=== PATIENT | female | born 1985 | race Caucasian/White ===

== ENCOUNTER 2020-10-08 09:20 | Emergency (ER) | payer OTHER, SELFPAY ==
[2020-10-08] VITALS (13 sets, daily range): BP systolic 118–125; BP diastolic 75–81; PULSE 67–94; RESP 11–20; TEMP 37.1; O2SAT 99–100
--- NOTE | 2020-10-08 09:15 | RT.EKG_ITS ---
APPROVED REPORT Exam: Resting ECG Reason for Exam: Chest Pain Patient Location: E HR:76 bpm ECG Measurements Heart Rate 76 AXIS DE 149 P 71 QRSd 86 QRS 49 QT 367 T 45 QTc 413 Conclusion Sinus rhythm...normal P axis, V-rate 60- 99. No STEMI. I have reviewed and interpreted ECG and agree with software generated interpretation.
--- NOTE | 2020-10-08 09:25 | W.ED.GENAD ---
Discharge Plan Disposition Patient Disposition: HOME Condition: Stable Discharge Details Clinical Impression: Non-cardiac chest pain Primary Care Provider: Orlin Lan ED Provider: Dunia Quigley Home Meds and New Rx's Prescriptions: No Action rizatriptan [Maxalt-PLAY READER] 10 mg tablet,disintegrating See Rx Instructions .ROUTE .COMPLEX RF: 0 metoclopramide HCl 10 mg tablet 10 mg PO TID PRNRF: 0 Discharge Instructions Instructions: Chest Pain (ED) Additional Instructions: At this time we have done a cardiac rule out work-up for your chest pain here. At this time it does not seem to be cardiac related. You have had a normal EKG and blood work. Follow up with primary care provider in 3-5 days. Return to ED sooner if any worsening or concerns. Increase oral fluids. Please take Tylenol or Ibuprofen with food every 4-6 hours as needed for pain and swelling. Please return to the ED for any change in the type of pain, trouble breathing, shortness of breath coughing up green or yellow sputum, fever or any other worsening concerns. Stand Alone Forms: Work Release Referrals: Orlin Lan MD [Primary Care Provider] - Discharge Data Discharge Date/Time-TO BE ENTERED AT DEPARTURE: 10/08/20 11:22 Medical Decision Making 34-year-old female presents to the ER with chief complaint of left sided chest pain which radiates around to the front of her right chest which began last night while in class. Patient is a teacher at an elementary school. She states that the pain has been constant, waxes and wanes. On arrival she is complaining of a 4 out of 10 pain. Pain does get worse with movement and deep breathing. She does have tenderness with palpation to her anterior chest wall. She does have not have any significant past cardiac history does have positive family past medical history. She states that her grandfather had an ME at a young age. Last normal menstrual period was approximately 1 month ago she is not currently taking any control pills. She is a non-smoker denies not endorse any alcohol use. She does have a past medical history of migraines and takes Imitrex and metoclopramide for. Does not currently have a headache. Cardiac work-up ordered including serial troponins, EKG. Chest x-ray D-dimer. 0927: EKG was reviewed by [myself and] ER attending, no ectopy, no EKG available for review. EXAM: XR CHEST 2V PA LATERAL CLINICAL HISTORY: Chest pain, R/O PNA, Pnthx, cardiopulmonary abnorm TECHNIQUE: 2D digital imaging was performed. COMPARISON: No exams were available for comparison FINDINGS: The heart is not enlarged. The lungs are clear and well expanded. No pleural effusion seen. Mediastinal contours appear intact. IMPRESSION: Normal chest. Lab work is within normal limits, no elevation in troponin, chest x-ray shows no cardiopulmonary abnormality. Patient D-dimer 193 CMP within normal limits. Patient reevaluation she does still have some mild chest discomfort with moving or deep breathing none at rest. Will order some ibuprofen for her prior to discharge. At this time I do suspect more musculoskeletal or pleuritic type pain noncardiac in origin. I did discuss follow-up with her primary care provider for further work-up and discussed return instructions to return to the ER for any worsening chest pain not relieved by medications, shortness of breath, cough fever, fast heart rate or any concerns. Patient does verbalize understanding. At this time patient is low risk, heart score is very low risk at this time. HPI General Mode of arrival: ambulatory. Date/Time Provider Initiated Documentation: 10/08/20 09:25. Limitations to Documentation: no limitations. Information obtained by: patient. HPI Narrative: 34-year-old female presents to the ER with chief complaint of left sided chest pain which radiates around to the front of her right chest which began last night while in class. Patient is a teacher at an elementary school. She states that the pain has been constant, waxes and wanes. On arrival she is complaining of a 4 out of 10 pain. Pain does get worse with movement and deep breathing. She does have tenderness with palpation to her anterior chest wall. She does have not have any significant past cardiac history does have positive family past medical history. She states that her grandfather had an ME at a young age. Last normal menstrual period was approximately 1 month ago she is not currently taking any control pills. She is a non-smoker denies not endorse any alcohol use. She does have a past medical history of migraines and takes Imitrex and metoclopramide for. Does not currently have a headache. Related Data Home Medications Medication Instructions Recorded Confirmed metoclopramide HCl 10 mg PO TID PRN 10/08/20 10/08/20 rizatriptan [Maxalt-PLAY READER] See Rx Instructions .ROUTE .COMPLEX 10/08/20 10/08/20 Allergies Allergy/AdvReac Type Severity Reaction Status Date / Time chocolate flavor Allergy Severe MIGRANE, Unverified 10/08/20 09:31 THROAT CLOSES Review of Systems Narrative: Constitutional: Negative for weight loss, alert and oriented, well groomed, normal body habitus, appears comfortable. HEENT: Denies trauma, headaches, blurry vision, nasal discharge, sore throat, trouble swallowing. Chest: Denies palpitations, irregular rhythm, reports left-sided chest pain which radiates across to her right side of her chest which has been constant with waxing and waning worse with deep breathing and palpation and movement since last night. Respiratory: Denies Shortness of breath, cough, hemoptysis. GI: Denies abdominal pain, nausea, vomiting, diarrhea, constipation. : Denies dysuria, hematuria, flank pain, rectal bleeding. Neuro: Denies dizziness, blurry vision, weakness, syncope, headache or facial numbness. Hematologic: Denies easy bruising, intolerance to heat or cold, hair loss. [facility] Surgical History section x2: 08/31/10; 04/22/13 wisdom tooth extraction (09/09/12) Social History Smoking/Tobacco Use Status: Never Smoking risk assessment performed?: Yes Alcohol Intake: current Alcohol Intake frequency: holidays/special occasions only Drug use: Never Substance use type: does not use Do you feel safe at home: Yes Do you feel safe in your relationship?: Yes Exam Narrative Exam Narrative: Constitutional: Alert and oriented x3. Appears stated age. Normal body habitus. Head: Normocephalic, no trauma. Eyes: Pupils PERRLA, Red reflex noted, EOM's intact. Eyelids symmetrical without lesions, discharge, or swelling. ENT: Bilateral TM's WNL, External ear normal to inspection, no mastoid TTP, swelling, or erythema, Nasal turbinates WNL, no nasal discharge. Normal dentition, Posterior pharynx WNL, no exudate. Chest: RRR, Normal S1, S2, distal pulses intact. Resp: Lungs clear to auscultation bilaterally, no wheezes, rales, or rhonchi. Musculoskeletal: Normal gait, 5/5 strength to all four extremities. Skin: No suspicious rashes or lesions. Capillary refill less than 2 sec. Neurologic: Cranial nerves II-XII intact. Alert and oriented x 3. DTR's intact. Hematologic/Lymphatic: No ecchymosis, no lymphadenopathy.
[2020-10-08 09:51] LABS: Abs Immature Grans 0.01 10^3/uL (0.0-0.06); Absolute Basophil Count 0.05 10^3/uL (0.0-0.2); Absolute Eosinophil Count 0.03 10^3/uL (0.0-0.7); Absolute Lymphocyte Count 1.91 10^3/uL (1.2-3.4); Absolute Monocyte Count 0.38 10^3/uL (0.1-0.8); Basophils % 0.7; Eosinophils % 0.4; HCT 40.8 % (36.0-46.0); HGB 14.1 g/dL (11.2-15.7); Immature Grans % 0.1; Lymphocytes % 28.2; MCHC 34.6 % (32.0-36.0); MCV 92.7 fL (80-95); MPV 10.9 fL (8.0-11.0); Monocytes % 5.6; Nucleated RBC 0 %; Platelet Count 234 10^3/uL (130-400); RDW 12.2 % (11.7-14.6); RDW-SD 41.9 fL; WBC 6.78 10^3/uL (4.4-10.8)
[2020-10-08] MEDS: Aspirin 81 MG CHEW 324 MG CH (10:05)
[2020-10-08 10:07] LABS: ALT 17 U/L (14-59); AST 14 U/L (15-37); Albumin 4.5 g/dL (3.4-5.0); Alkaline Phosphatase 59 U/L (46-116); Anion Gap 8.8 mmol/L (3-11); BUN 11 mg/dL (7-18); Bilirubin, Total 0.6 mg/dL (0.2-1.0); CO2 26.2 mmol/L (21.0-32.0); CREATININE 0.8 mg/dL (0.55-1.02); Calcium 9.4 mg/dL (8.5-10.1); Chloride 104 mmol/L (98-107); Glucose 106 mg/dL (74-106); Potassium 3.6 mmol/L (3.5-5.1); Sodium 139 mmol/L (136-145); Total Protein 7.7 g/dL (6.4-8.2); Troponin I < 0.05 ng/mL (<0.06)
[2020-10-08 10:22] LABS: D-Dimer 193 ng/mlFEU (<500)
--- NOTE | 2020-10-08 10:35 | DI.RAD_ITS ---
Exam(s) XR CHEST 2V PA LATERAL EXAM: XR CHEST 2V PA LATERAL CLINICAL HISTORY: Chest pain, R/O PNA, Pnthx, cardiopulmonary abnorm TECHNIQUE: 2D digital imaging was performed. COMPARISON: No exams were available for comparison FINDINGS: The heart is not enlarged. The lungs are clear and well expanded. No pleural effusion seen. Mediastin al contours appear intact. IMPRESSION: Normal chest. RADIATION DOSE DELIVERED: Total DLP
[2020-10-08] MEDS: Ibuprofen 400 MG TAB PO (11:18)
== END 2020-10-08 11:22 | disposition home or self-care (01) ==
PROVIDERS: Emergency Provider Registered Nurse Emergency; PCP Internal Medicine
DX: R07.89 Other chest pain (principal)
CPT/HCPCS: 36415; 80053; 81025; 93005; 99284; 71046; 83735; 84484; 85025; 85379; 93010; 99283

== ENCOUNTER 2023-07-24 21:09 | Outpatient (REF) | payer OTHER, SELFPAY | END 2023-07-24 21:10 | disposition home or self-care (01) | LOC: LBN 21:09 | PROVIDERS: Visit Provider Nurse Practitioner Family | DX: N30.01 Acute cystitis with hematuria (principal) | CPT/HCPCS: 87077; 87086; 87186 ==

== ENCOUNTER 2023-10-04 15:39 | Emergency (ER) | payer OTHER, SELFPAY ==
[2023-10-04 15:41] VITALS: PULSE 109; RESP 18; TEMP 37.2; O2SAT 99
[2023-10-04 15:44] VITALS: BP 131/88
--- NOTE | 2023-10-04 18:09 | ED.GENADUL_ITS ---
Discharge Plan Disposition Patient Disposition: Home Condition: Stable Discharge Details Clinical Impression: Strain of left tibialis anterior muscle, Neuropathy of left peroneal nerve Primary Care Provider: Unknown,Unknown ED Provider: Cristian Schroeder Home Meds and New Rx's Prescriptions: No Action rizatriptan [Maxalt-COORDINATOR SKILL TRAINING PROGRAM] 10 mg tablet,disintegrating See Rx Instructions .ROUTE .COMPLEX Patient Comments: take one tablet at onset of migraine symptoms. You can repeat in 1-2 hours if needed. No more than 2 tablets in 24 hours. Rx Instructions: take one tablet at onset of migraine symptoms. You can repeat in 1-2 hours if needed. No more than 2 tablets in 24 hours. metoclopramide HCl 10 mg tablet 10 mg PO TID PRN Patient Comments: TAKE 1 TABLET BY MOUTH THREE TIMES A DAY IF NEEDED FOR NAUSEA WITH HEADACHE Discharge Instructions Instructions: Cyclobenzaprine (By mouth), Muscle Strain (ED), Peripheral Neuropathy (ED) Additional Instructions: You were seen in the emergency department for your likely muscle strain and neuropathy, you could have slept on the area of the peroneal nerve that we discussed wrong and cause a little irritation along the nerve. Please alternate heat and ice to the area, take Tylenol, take 2 Aleve every 12 hours. Perform gentle massage, use the provided cyclobenzaprine for muscle relaxation. If this is not improving over the next 1 to 2 weeks please seek a referral to orthopedics, you have no sign of complete neurovascular compromise or significant infection on exam. And without prior trauma I do not suspect we need an x-ray at this time and less you are experiencing failure to resolve. Referrals: [facility] [Provider Group] Discharge Data Discharge Date/Time-TO BE ENTERED AT DEPARTURE: 10/04/23 18:35 HPI General Date/Time Provider Initiated Documentation: 10/04/23 15:45 . HPI Narrative: 37 year-old female presents to ED today by POV/ambulating with a chief complaint of L ankle pain with onset last week- cannot recall any trauma to the area. Quality described as pain in anterior left lower leg, with radiation to tingling feeling to the foot, feels cold and asleep somtimes. Severity is described as moderate. Palliating factors include has been using ice, OTC analgesics without relief, has OTC brace. Provoking factors include nothing specific. Patient not anticoagulated. Related Data Home Medications Medication Instructions Recorded Confirmed metoclopramide HCl 10 mg tablet 10 mg PO TID PRN 10/08/20 10/08/20 rizatriptan 10 mg disintegrating See Rx Instructions .Route .COMPLEX 10/08/20 10/08/20 tablet (Maxalt-COORDINATOR SKILL TRAINING PROGRAM) Allergies Allergy/AdvReac Type Severity Reaction Status Date / Time chocolate flavor Allergy Severe MIGRANE, Unverified 10/08/20 09:31 THROAT CLOSES General Stated Complaint: Orthopedic DARWIN: 4 Review of Systems All systems reviewed & are unremarkable except as noted in HPI and below Exam Narrative Exam Narrative: GENERAL APPEARANCE: Well-nourished, non-toxic, awake and alert, atraumatic, no acute distress. SKIN: Warm, pink, dry, intact, without rashes/lesions/ulcerations. HEAD: Normocephalic, atraumatic, normal hair distribution for gender/age. EYES: Normal conjunctiva, no exudates on lids/lashes. ENT: Nares patent, no circumoral cyanosis, no facial swelling NECK: Supple, trachea midline, painless cervical ROM. LUNGS/CHEST: Non-labored respirations, normal A/P diameter, symmetrical expansion, no chest wall deformity HEART (CV/PV): Regular rate, L dorsalis pedis 2+, no peripheral edema, no JVD. ABDOMEN: Soft, non-distended, no guarding. MSK: Normal ROM, no swelling/deformity to bilateral UEs or LEs, moving all extremities without weakness, no cyanosis, spine midline without tenderness, normal curvature. L LE: Tenderness is in the exact distribution of the anterior tibialis muscle, patient has limited to range of motion and strength of the left foot and ankle due to pain, brisk capillary refill and sensation is intact, also has tenderness around the fibular head, I do suspect the patient has an element of muscle strain as well as peroneal nerve neuropathy, no lesions, no erythema, no joint swelling, no warmth to touch, no pain with passive ROM. NEURO: Mental Status AAOx4 - alert to person, place, time, events No facial droop, no forehead involvement. Motor: No focal weakness - strength 5/5 in bilateral UEs and LEs, proximal and distal, symmetric. Sensory: sensation intact to light touch globally. Gait mildly antalgic. PSYCH: euthymic, cooperative, pleasant, appropriate speech Course Vital Signs Vital signs: Vital Signs Temperature 37.2 C 10/04/23 15:41 Pulse 109 H 10/04/23 15:41 Respiratory Rate 18 10/04/23 15:41 Pulse Oximetry 99 10/04/23 15:41 Temperature 37.2 C 10/04/23 15:41 Temperature Source Skin 10/04/23 15:41 Pulse 109 H 10/04/23 15:41 Respiratory Rate 18 10/04/23 15:41 Respiratory Effort Normal 10/04/23 15:44 Blood Pressure 131/88 10/04/23 15:44 Blood Pressure Position Sitting 10/04/23 15:41 Pulse Oximetry 99 10/04/23 15:41 Oxygen Delivery Method Room Air 10/04/23 15:41 Oxygen Flow Rate 0 10/04/23 15:41 Medical Decision Making This dictation utilizes [id number] dictation software and may contain unedited grammatical errors. 37 y/o F presents to ED today with a chief complaint of L ankle pain, ongoing for one week- some tingling, no trauma, denies fever/redness/lesions. Patient has been treating adequately with OTC regimens. Patients' medical history: Noncontributory. Family and social history: Noncontributory. Pertinent exam findings / vital signs include L LE: Tenderness is in the exact distribution of the anterior tibialis muscle, patient has limited to range of motion and strength of the left foot and ankle due to pain, brisk capillary refill and sensation is intact, also has tenderness around the fibular head, I do suspect the patient has an element of muscle strain as well as peroneal nerve neuropathy, no lesions, no erythema, no joint swelling, no warmth to touch, no pain with passive ROM.. Differential / pathologies of concern include muscle strain, peroneal neuropathy, unlikely septic arthritis, unlikely neurovascular compromise. Diagnostic studies of: -none, there was no bony tenderness in the ankle- clear distribution along anterior tib and peroneal - suspect they may have slept on their peroneal nerve one night. Interventions of: -Provided cyclobenzaprine to go, recommend gentle heat & massage, ortho f/u. ED Course/Assessment/Plan: 37-year-old female seen with likely muscle strain of the left lower extremity, there is no bony tenderness or pathologies to suspect infectious etiology of any joint, I do suspect he may have slept wrong on their peroneal nerve. Recommend continue at-home treatment, follow-up ortho. Findings not consistent with septic arthritis, gout, fracture, NV compromise. Disposition of Strain of left tibialis anterior muscle, neuropathy of left peroneal nerve. Patient verbalized understanding of the plan and return to ED criteria and engaged in shared decision making. Medical Records Medical records reviewed: Yes I reviewed the patient's medical records. Quality:[facility] Health Related Social Needs: No Data to Display PFSH All Active Problems (Updated 10/04/23 @ 18:19 by MARIA E Gonzales) Neuropathy of left peroneal nerve (Acute) Strain of left tibialis anterior muscle (Acute) Non-cardiac chest pain (Acute) Migraine (Chronic) Surgical History section x2: 08/31/10; 04/22/13 wisdom tooth extraction (09/09/12) Social History Smoking/Tobacco Use Status: Never Smoking risk assessment performed?: Yes Alcohol Intake: current Alcohol Intake frequency: holidays/special occasions only Drug use: Never Substance use type: does not use Do you feel safe at home: Yes Do you feel safe in your relationship?: Yes
[2023-10-04] MEDS: Cyclobenzaprine 10 MG TAB, 3 TABS/BTL PO (18:34)
== END 2023-10-04 18:35 | disposition home or self-care (01) ==
PROVIDERS: Emergency Provider Physician Assistant
DX: S86.212A Strain of muscle(s) and tendon(s) of anterior muscle group at lower leg level, left leg, initial encounter (principal); S84.12XA Injury of peroneal nerve at lower leg level, left leg, initial encounter; X58.XXXA Exposure to other specified factors, initial encounter
CPT/HCPCS: 99283

== ENCOUNTER 2024-09-05 10:42 | Outpatient (CLI) | payer OTHER, SELFPAY ==
[2024-09-05 14:18] LABS: Anion Gap 9.7 mmol/L (3-11); BUN 12 mg/dL (7-18); CO2 27.3 mmol/L (21.0-32.0); CREATININE 0.8 mg/dL (0.55-1.02); Calcium 8.9 mg/dL (8.5-10.1); Chloride 107 mmol/L (98-107); Estimated GFR 97.87 (mL/min/1.73m2); Glucose 91 mg/dL (74-106); Potassium 3.3 mmol/L (3.5-5.1); Sodium 144 mmol/L (136-145); TSH (W/Ref FT4) 1.07 uIU/mL (0.36-3.74)
[2024-09-08 08:34] LABS: HIV-1/2 Ag & Ab Screen Negative (Negative)
[2024-09-08 08:51] LABS: Hepatitis C Ab w Rflx HCV PCR Negative (Negative)
[2024-09-08 09:59] LABS: HBs Antibody, Quant 5.3 mIU/mL (See Note); Hep B Surface Ab Negative (See Note); Hepatitis B Core Antibody Negative (Negative); Hepatitis B Surface Antigen Negative (Negative)
[2024-09-08 10:05] LABS: HDL Cholesterol 68 mg/dL (>or=50); LDL CHOLESTEROL 68 mg/dL (<100)
== END 2024-09-05 10:43 | disposition home or self-care (01) ==
LOC: LBO 10:43
PROVIDERS: PCP Nurse Practitioner Family; Visit Provider Nurse Practitioner Family
DX: Z11.4 Encounter for screening for human immunodeficiency virus [HIV] (principal); Z00.00 Encounter for general adult medical examination without abnormal findings; Z11.59 Encounter for screening for other viral diseases
CPT/HCPCS: 36415; 80048; 83721; 86704; 86706; 86803; 87340; 87389; 83036; 83718; 84443

== ENCOUNTER 2024-12-30 01:27 | Outpatient (CLI) | payer OTHER, SELFPAY ==
--- NOTE | 2024-12-30 06:30 | DI.RAD_ITS ---
Exam(s) XR FINGER RT INDEX EXAM: XR FINGER RT INDEX CLINICAL HISTORY: on going pain,pain rt finger,M79.644. TECHNIQUE: 2D digital imaging was performed. COMPARISON: No exams were available for comparison FINDINGS: 3 views No evidence of fracture or dislocation nor abnormal soft tissue densities. Bone density is normal. No osseous lesions nor erosions evident. IMPRESSION: No significant osseous findings in the 2nd-index finger. DATA REPOSITORY: RADIATION DOSE DELIVERED:
== END 2024-12-30 01:47 ==
LOC: DI 01:28
PROVIDERS: PCP Nurse Practitioner Family; Visit Provider Nurse Practitioner Family
DX: M79.644 Pain in right finger(s) (principal)
CPT/HCPCS: 73140

== ENCOUNTER 2025-02-27 15:14 | Outpatient (REF) | payer OTHER, SELFPAY ==
--- NOTE | 2025-02-27 13:45 | PAPFT_PTH ---
PATIENT: Niki Carvalho LOC: [facility] U#:[id number] AGE/SX: 39/F ROOM: RE02/27/[address]: MASSIEL Pedro : 1985 BED: DIS: 02/27/2025 SPEC #: [id number] RECD: 02/27/25 17:31 STATUS: NISSA RESid #: [id number] MARGARITA: 02/27/25 13:[address]: Homa Ferrera [facility] Cytology RECD BY: Carolina Fragoso Tissues: 1 - CX/ENDOCX FOR PAP SMEARS Procedures: PAP THIN PREP/[facility] Screening HPV DNA PROBE Comments: [id number] (HPV 16 & 18/45)
== END 2025-02-27 15:15 | disposition home or self-care (01) ==
LOC: LBN 15:14
PROVIDERS: PCP Nurse Practitioner Family; Visit Provider Nurse Practitioner Family
DX: Z12.4 Encounter for screening for malignant neoplasm of cervix (principal)
CPT/HCPCS: 88142; 87624